=== PATIENT | female | born 1945 | race Hispanic/Latino ===

== ENCOUNTER 2018-04-08 22:52 | Observation (INO) | payer MEDICARE ==
[~2018-04-08] VITALS: Ht 165.1 cm; Wt 88.9 kg
[~2018-04-08 22:52] MED LIST: ALENDRONATE SOD70 MG PO; ARMOUR THYROID30 MG PO; CARBAMAZEPINE200 MG PO; CARBATROL200 MG PO; COZAAR100 MG PO; ISOSORBIDE MONO30 MG PO; LEVOTHYROXINE75 MCG PO; LISINOPRIL10 MG PO; METOPROLOL TART50 MG PO; OMEPRAZOLE40 MG PO; PRAVACHOL80 MG PO; PREDNISONE10 MG PO; PRILOSEC20 MG PO; Z.0.FORTAMET500 MG; Z.0.LASIX20 MG PO; Z.0.LISINOPRIL40 MG PO; Z.0.METOPROLOL SUCC5 PO; ZITHROMAX500 MG PO; [UNRECOGNIZED DRUG - OTHER] PO
--- OUTSIDE RECORDS SUMMARY | 2018-04-08 22:55 | XMS REPORT ---
Author Author [facility] Address Unknown Phone Unavailable Care Team Providers Care Ux Interaction Designer Name Role Phone GISELLE ABUTISTA Unavailable Unavailable Problems This patient has no known problems. Allergies, Adverse Reactions, Alerts This patient has no known allergies or adverse reactions. Medications This patient has no known medications. Results Test Description Test Time Test Comments Text Results Atomic Results Result Comments Stress Test - Treadmill ONLY [place] [id number] Patient Name : ANDREW FORBES MR #: [id number] : 1945 Age/Sex: 71/F Adm Physician : GISELLE BAUTISTA MD Admit Date : Location : [place] Room/Bed : REPORT: Cardiology Report DATE OF STUDY: March 24, 2017 LEXISCAN NUCLEAR STRESS TEST INDICATIONS: Chest pain. DESCRIPTION OF PROCEDURE: After informed consent, the patient was brought to the stress lab. She was given 11 millicuries of technetium 99 Myoview, and myocardial perfusion SPECT images were obtained in the horizontal long and short axis and vertical long axis views. Subsequently, the patient was given 0.5 mg Lexiscan over 10 seconds. Patient was given 31.5 millicuries of technetium 99 Myoview, and myocardial perfusion SPECT images were obtained in horizontal long and short axis and vertical long axis views. Gated images were also obtained. Patient tolerated the procedure without any complications. REPORT: Baseline EKG shows sinus rhythm at 61 beats per minute, normal axis, normal intervals, and T-wave inversions in II, III, aVF and V4 to V6. PARAMETERS 1. Resting heart rate is 56 beats per minute. 2. Maximum heart rate is 100 beats per minute. 3. Resting blood pressure is 153/61 mmHg. 4. Maximum blood pressure 171/57 mmHg. REASON FOR TERMINATION: End point attained. INTERPRETATION 1. Negative for chest pain. 2. Negative for arrhythmias. 3. Blood response consistent with Lexiscan. 4. No significant ST-T changes seen during Lexiscan infusion compared to baseline. 5. Analysis of SPECT images reveals patchy radioisotope uptake during rest and not during stress. No significant fixed or reversible perfusion defects noted. CONCLUSION 1. No evidence of significant ischemia or infarction on this study. 2. No wall motion abnormalities. 3. Overall ejection fraction is 69%. Job#: [id number] Signature Date Dictated By: GISELLE BAUTISTA MD Transcribed By: FELICIANO on 03/25/17 <Electronically signed by GISELLE BAUTISTA MD><<Signature on File>>03/29/17 1651 COPY TO:
--- OUTSIDE RECORDS SUMMARY | 2018-04-08 22:55 | XMS REPORT | Continuity of Care Document ---
Author Author [facility] Interface Address Unknown Phone Unavailable Problems Problem Status Onset Date Classification Date Reported Comments Source Dysuria 10/29/2016 Diagnosis 10/29/2016 [facility] Tachycardia 10/29/2016 Diagnosis 10/29/2016 [facility] Medications Medication Details Route Status Patient Instructions Ordering Provider Order Date Source Acetaminophen 300 MG / Codeine Phosphate 30 MG Oral Tablet acetaminophen 300 mg-codeine 30 mg tablet TOME 1 TABLETA 4 VECES AL JUANA Active [facility] Alendronic acid 70 MG Oral Tablet alendronate 70 mg tablet TOME 1 TABLETA CADA SEMANA Active [facility] Amlodipine 5 MG Oral Tablet amlodipine 5 mg tablet TOME 1 TABLETA CADA JUANA Active [facility] Ciprofloxacin 500 MG Oral Tablet [Cipro] Cipro 500 mg tablet Take 1 tablet every 12 hours by oral route for 10 days. Active [facility] Famotidine 20 MG Oral Tablet famotidine 20 mg tablet TAKE ONE TABLET BY MOUTH TWICE A DAY Active [facility] ferrous sulfate 324 MG Delayed Release Oral Tablet ferrous sulfate 324 mg (65 mg iron) tablet,delayed release TOME 1 TABLETA DOS VECES AL JUANA Active [facility] Fluoxetine 20 MG Oral Capsule fluoxetine 20 mg capsule TOME 1 CAPSULA CADA JUANA Active [facility] 24 HR Isosorbide Mononitrate 30 MG Extended Release Oral Tablet isosorbide mononitrate ER 30 mg tablet,extended release 24 hr TOME 1 TABLETA 2 VECES AL JUANA Active [facility] Levothyroxine Sodium 0.125 MG Oral Tablet levothyroxine 125 mcg tablet TOME 1 TABLETA CADA JUANA Active [facility] Levothyroxine Sodium 0.2 MG Oral Tablet levothyroxine 200 mcg tablet TOME 1 TABLETA CADA JUANA Active [facility] Lisinopril 40 MG Oral Tablet lisinopril 40 mg tablet TOME 1 TABLETA 2 VECES AL JUANA Active [facility] Hydrochlorothiazide 12.5 MG / Losartan Potassium 100 MG Oral Tablet losartan 100 mg-hydrochlorothiazide 12.5 mg tablet TOME 1 TABLETA CADA JUANA Active [facility] Hydrochlorothiazide 25 MG / Losartan Potassium 100 MG Oral Tablet losartan 100 mg-hydrochlorothiazide 25 mg tablet TOME 1 TABLETA 2 VECES AL ROMERO Active [facility] meloxicam 7.5 MG Oral Tablet meloxicam 7.5 mg tablet TOME 1 TABLETA CADA JUANA Active [facility] Metoprolol Tartrate 50 MG Oral Tablet metoprolol tartrate 50 mg tablet TOME 1 TABLETA DOS VECES AL JUANA Active [facility] montelukast 10 MG Oral Tablet montelukast 10 mg tablet TOME 1 TABLETA CADA JUANA Active [facility] NITROFURANTOIN, MACROCRYSTALS 25 MG / Nitrofurantoin, Monohydrate 75 MG Oral Capsule nitrofurantoin monohydrate/macrocrystals 100 mg capsule TOME 1 CAPSULA DOS VECES AL JUANA POR 7 WHEATLEY Active [facility] Nitroglycerin 0.4 MG Sublingual Tablet nitroglycerin 0.4 mg sublingual tablet DISUELVE 1 TABLETA EN LA BOCA Y TOME CADA 5 MINUTOS POR 3 DOSIS IRISH INDICADO Active [facility] Omeprazole 40 MG Delayed Release Oral Capsule omeprazole 40 mg capsule,delayed release TOME 1 CAPSULA CADA JUANA Active [facility] Pravastatin Sodium 80 MG Oral Tablet pravastatin 80 mg tablet TOME 1 TABLETA CADA NOCHE ALCOSTARSE Active [facility] Raloxifene Hydrochloride 60 MG Oral Tablet raloxifene 60 mg tablet TOME 1 TABLETA CADA JUANA Active [facility] Sertraline 50 MG Oral Tablet sertraline 50 mg tablet TAKE ONE TABLET BY MOUTH EVERYDAY Active [facility] Allergies, Adverse Reactions, Alerts Substance Category Reaction Severity Reaction type Status Date Reported Comments Source Immunizations Immunization Date Given Site Status Last Updated Comments Source influenza, injectable, quadrivalent 02/20/2016 completed [facility] Results Order Name Results Value Reference Range Date Interpretation Comments Source Urinalysis macro (dipstick) panel - Urine COLOR : Straw 10/29/2016 [facility] Urinalysis macro (dipstick) panel - Urine CLARITY : Turbid 10/29/2016 [facility] Urinalysis macro (dipstick) panel - Urine LEUKOCYTES : Large 10/29/2016 [facility] Urinalysis macro (dipstick) panel - Urine NITRITES : Negative 10/29/2016 [facility] Urinalysis macro (dipstick) panel - Urine UROBILINOGEN : 1 10/29/2016 [facility] Urinalysis macro (dipstick) panel - Urine PROTEIN : 30 10/29/2016 [facility] Urinalysis macro (dipstick) panel - Urine pH : 7.5 10/29/2016 [facility] Urinalysis macro (dipstick) panel - Urine BLOOD : Moderate 10/29/2016 [facility] Urinalysis macro (dipstick) panel - Urine SPECIFIC GRAVITY : 1.015 10/29/2016 [facility] Urinalysis macro (dipstick) panel - Urine KETONES : Negative 10/29/2016 [facility] Urinalysis macro (dipstick) panel - Urine BILIRUBIN : Negative 10/29/2016 [facility] Urinalysis macro (dipstick) panel - Urine GLUCOSE Negative 10/29/2016 [facility] Vital Signs Vital Sign Value Date Comments Source Diastolic (mm Hg) 68 10/29/2016 [facility] Height 65 10/29/2016 [facility] Systolic (mm Hg) 136 10/29/2016 [facility] Weight 192 10/29/2016 [facility] Encounters Location Location Details Encounter Type Encounter Number Reason For Visit Attending Provider ADM Date DC Date Status Source [place] - [facility] - [id number] Damon Means, [facility] [facility] [address] [facility] [place] [address], Ph. [id number] Damon Means 10/29/2016 [facility] Procedures Procedure Code Date Perfomer Comments Source Hysterectomy [facility] Heart Failure Composite [facility]
--- OUTSIDE RECORDS SUMMARY | 2018-04-08 22:55 | XMS REPORT | Encounter Summary ---
Author Organization Unknown Address [address] [place] [address] Phone [phone] Reason for Visit Medical Complaint Instructions 1. Dysuria painful urination (dysuria): care instructions Cipro 500 mg tablet urinalysis, dipstick culture, urine 2. Tachycardia Discussion Note: None recorded. Plan of Care Patient Instructions take antibiotics as prescribed. increase fluids. otc tylenol or ibuprofen prn for pain. will contact patient when results of culture are finalized. follow up pcp Reminders Provider Appointments None recorded. Lab Urinalysis, Dipstick 10/29/2016 [facility] Culture, Urine 10/29/2016 [facility] Referral None recorded. Procedures None recorded. Surgeries None recorded. Imaging None recorded. Medications Name Start Date acetaminophen 300 mg-codeine 30 mg tablet TOME 1 TABLETA 4 VECES AL JUANA alendronate 70 mg tablet TOME 1 TABLETA CADA SEMANA amlodipine 5 mg tablet TOME 1 TABLETA CADA JUANA Cipro 500 mg tablet Take 1 tablet every 12 hours by oral route for 10 days. famotidine 20 mg tablet TAKE ONE TABLET BY MOUTH TWICE A DAY ferrous sulfate 324 mg (65 mg iron) tablet,delayed release TOME 1 TABLETA DOS VECES AL JUANA fluoxetine 20 mg capsule TOME 1 CAPSULA CADA JUANA isosorbide mononitrate ER 30 mg tablet,extended release 24 hr TOME 1 TABLETA 2 VECES AL JUANA levothyroxine 125 mcg tablet TOME 1 TABLETA CADA JUANA levothyroxine 200 mcg tablet TOME 1 TABLETA CADA JUANA lisinopril 40 mg tablet TOME 1 TABLETA 2 VECES AL JUANA losartan 100 mg-hydrochlorothiazide 12.5 mg tablet TOME 1 TABLETA CADA JUANA losartan 100 mg-hydrochlorothiazide 25 mg tablet TOME 1 TABLETA 2 VECES AL ROMERO meloxicam 7.5 mg tablet TOME 1 TABLETA CADA JUANA metoprolol tartrate 50 mg tablet TOME 1 TABLETA DOS VECES AL JUANA montelukast 10 mg tablet TOME 1 TABLETA CADA JUANA nitrofurantoin monohydrate/macrocrystals 100 mg capsule TOME 1 CAPSULA DOS VECES AL JUANA POR 7 [place] nitroglycerin 0.4 mg sublingual tablet DISUELVE 1 TABLETA EN LA BOCA Y TOME CADA 5 MINUTOS POR 3 DOSIS IRISH INDICADO omeprazole 40 mg capsule,delayed release TOME 1 CAPSULA CADA JUANA pravastatin 80 mg tablet TOME 1 TABLETA CADA NOCHE ALCOSTARSE raloxifene 60 mg tablet TOME 1 TABLETA CADA JUANA sertraline 50 mg tablet TAKE ONE TABLET BY MOUTH EVERYDAY Medications Administered None recorded. Vitals Height Weight BMI Blood Pressure 5 ft 5 in 192 lbs 32 136/68 Lab Results Date Name Specimen Result Interpretation Description Value Range Status Address Urinalysis, Dipstick Color : Straw [facility]: [address] [place] [address] Clarity : Turbid [facility]: [address] [place] [address] Leukocytes : Large [facility]: [address] [place] [address] Nitrites : Negative [facility]: [address] [place] [address] Urobilinogen : 1 [facility]: [address] [place] [address] Protein : 30 [facility]: [address] [place] [address] Ph : 7.5 [facility]: [address] [place] [address] Blood : Moderate [facility]: [address] [place] [address] Specific [place] : 1.015 [facility]: [address] [place] [address] Ketones : Negative [facility]: [address] [place] [address] Bilirubin : Negative [facility]: [address] [place] [address] Glucose Negative [facility]: [address] [place] [address] Allergies Code Code System Name Reaction Severity Onset NKDA Problems None recorded. Procedures Date Name Performed by Hysterectomy Information not available Heart Failure Composite Information not available Vaccine List Vaccine Type influenza, injectable, quadrivalent 02/19/2016 Social History Smoking Status Never Smoker Past Encounters 10/29/2016 Dysuria; Tachycardia Damon Means, [facility]: [address] [place] [address], Ph. History of Present Illness [id number] Reported By: Patient HPI: Location: urethra. Quality: pressure, burning. Severity: same. Duration: constant. Onset/Timing: gradual. Context: history of urine cultures/antibiotic treatment, wipes anterior to posterior, voids after intercourse. Associated Symptoms: no fever/chills, no flank pain, no jaundice, no blood in the urine, no pain during urination, no vaginal discharge, no urgency, no blisters on genitals, no rash on genitals, no muscle aches, no headache, burning sensation during urination Review of Systems:ROS as noted in the HPI Review of Systems Basic Reported By: Patient Physical Exam Adult Basic, Adult Female Complete Reported By: Patient Constitutional: General Appearance: healthy-appearing, well-nourished, well-developed. Level of Distress: NAD Psychiatric: Mental Status: active and alert Lungs: Respiratory effort: no dyspnea, no tachypnea, no use of accessory muscles, no intercostal retractions. Auscultation: breath sounds normal Cardiovascular: Heart Auscultation: no murmurs, tachycardia Back: Thoracolumbar Appearance: ; pos murphys punch. states to have hx of back pain Abdomen: Inspection and Palpation: soft, non-distended, no tenderness, no guarding, no rebound tenderness, no masses, no CVA tenderness
[2018-04-08 23:52] LABS: BASOPHILS % 0.3 % (0.0-1.0); EOSINOPHILS # (AUTO) 0.2 (0.0-0.4); EOSINOPHILS % 3.1 % (0.0-6.0); HEMATOCRIT 32.8 % (34.2-44.1); HEMOGLOBIN 10.8 g/dL (12.0-16.0); MEAN CORPUSCULAR HEMOGLOBIN 28.7 pg (28-32); MEAN CORPUSCULAR HGB CONC 32.9 g/dL (31-35); MEAN CORPUSCULAR VOLUME 87.2 fL (81-99); MONOCYTES # (AUTO) 0.5 (0.2-0.8); MONOCYTES % 7.2 % (4.4-11.3); NEUTROPHILS # (AUTO) 3.8 (2.1-6.9); NEUTROPHILS % 58.1 % (38.7-80.0); PLATELET COUNT 142 x10e3/uL (140-360); RED BLOOD COUNT 3.76 x10e6/uL (3.6-5.1); RED CELL DISTRIBUTION WIDTH 13.4 % (11.7-14.4)
[2018-04-08 23:55] LABS: CLARITY,URINE CLEAR (CLEAR); COLOR,URINE YELLOW (YELLOW)
[2018-04-08 23:56] LABS: BACTERIA,URINE MODERATE /HPF; BILIRUBIN,URINE NEGATIVE (NEGATIVE); EPITHELIAL CELLS,URINE FEW /LPF; KETONES,URINE NEGATIVE (NEGATIVE); LEUKOCYTE ESTERASE ,URINE 1+ (NEGATIVE); NITRITE,URINE NEGATIVE (NEGATIVE); PROTEIN,URINE DIPSTICK NEGATIVE (NEGATIVE); RBC,URINE 0-5 /HPF (0-5); URINE UROBILINOGEN 0.2 mg/dL (0.2 - 1)
[2018-04-08] MEDS ORDERED: LISINOPRIL40 MG PO (23:57)
[2018-04-08] MEDS ORDERED: NITROSTAT0.4 MG SL (23:57)
[2018-04-09] VITALS (9 sets, daily range): BP systolic 130–192; BP diastolic 58–85
[2018-04-09] LABS: INR 0.9
[2018-04-09 00:01] LABS: PARTIAL THROMBOPLASTIN TIME 27.7 seconds (23.8-35.5)
[2018-04-09 00:10] LABS: ALBUMIN 3.7 g/dL (3.5-5.0); ALBUMIN/GLOBULIN RATIO 1.1 (0.8-2.0); ANION GAP 16.3 mmol/L (8-16); CALCIUM 9.1 mg/dL (8.4-10.2); CREATININE, SERUM 1.07 mg/dL (0.57-1.11); POTASSIUM 4.3 mmol/L (3.5-5.1)
--- NOTE | 2018-04-09 00:14 | Diagnostic Imaging Report ---
EXAMINATION: CHEST 2 VIEWS INDICATION: Chest pain for one week COMPARISON: 11/02/2014 FINDINGS: TUBES and LINES: None. LUNGS: Lungs are well inflated. Lungs are clear. There is no evidence of pneumonia or pulmonary edema. PLEURA: No pleural effusion or pneumothorax. HEART AND MEDIASTINUM: Cardiac size is mildly enlarged. There are atherosclerotic calcifications within the aorta. Midline sternotomy wires are intact. BONES AND SOFT TISSUES: There is a cortical irregularity at the anterolateral arch of the right sixth rib suspicious for subacute, healing fracture Soft tissues are unremarkable. UPPER ABDOMEN: No free air under the diaphragm. IMPRESSION: 1. No acute intrathoracic abnormality. 2. Cortical irregularity at the anterolateral arch of the right sixth rib suspicious for subacute, healing fracture. Signed by: Dr. Keon Brown M.D. on 04/09/2018 12:10 AM
[2018-04-09 00:30] LABS: CREATINE KINASE MB 1.9 ng/mL (0-5.0)
[2018-04-09] MEDS ORDERED: NITROGLYCERIN 2% OINT 1 GM PKT TOP ONE (00:30)
[2018-04-09] MEDS ORDERED: NITROGLYCERIN 0.4 MG SUBL SL PRN ×2 (01:00→12:45)
[2018-04-09] MEDS ORDERED: ONDANSETRON HCL INJ 2 MG/ML VIAL IV PRN (01:00)
[2018-04-09] MEDS ORDERED: ASPIRIN 81 MG CHEW TAB PO ONE ×2 (01:00→11:45)
[2018-04-09] MEDS ORDERED: FAMOTIDINE 20 MG TAB PO SCH (01:00)
[2018-04-09] MEDS: MORPHINE SULFATE 2 MG/ML SYR IV PRN (01:33)
[2018-04-09] MEDS: SODIUM CHLORIDE 0.9% 1000ML 1,000 ML IV SCH ×2 (01:42→11:06)
[2018-04-09] MEDS ORDERED: ACETAMINOP325 MG/10 PO (03:04)
[2018-04-09] MEDS: NITROGLYCERIN 2% OINT 1 GM PKT TOP SCH ×3 (06:05→17:31)
[2018-04-09 08:40] LABS: CREATINE KINASE MB 1.8 ng/mL (0-5.0)
[2018-04-09] MEDS: FAMOTIDINE 20 MG TAB PO SCH ×2 (08:50→21:07)
[2018-04-09] MEDS: ASPIRIN 81 MG ENTERIC COATED PO SCH (08:50)
[2018-04-09 12:01] LABS: CHOL/HDL RATIO 2.1 (3.0-3.6)
--- NOTE | 2018-04-09 12:52 | Consultation ---
DATE OF CONSULTATION: April 09, 2018 REQUESTING PHYSICIAN: Dr. Gayla Kunz. REASON FOR CONSULT: Chest pain. HISTORY OF PRESENT ILLNESS: Ms. Troncoso is a 72-year-old lady with past medical history as listed below. Apparently has been experiencing chest pain for the last week. Patient states that chest pain has been intermittent, lasting for about 5 to 10 minutes, nonradiating. No associated shortness of breath or diaphoresis. As this pain got worse, she decided to come to the hospital. Denies any abdominal pain, vomiting, diarrhea. Patient speaks mostly [place]. 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 REVIEW OF SYMPTOMS CONSTITUTIONAL: Has some fatigue and weakness. HEENT: No headache, blurring of vision, seizure, syncope. CARDIOVASCULAR: Has chest pain. No dyspnea, orthopnea, PND. RESPIRATORY: No cough, fever or expectoration. GI: No abdominal pain, vomiting, diarrhea. : No dysuria, frequency, incontinence. ALLERGIES: NO KNOWN DRUG ALLERGIES. MEDICATIONS: See list. PAST MEDICAL HISTORY 1. History of aortic valve replacement. 2. History of hypertension. 3. History of hyperlipidemia. 4. History of hypothyroidism. 5. History of GERD. SOCIAL HISTORY: Does not smoke or drink. FAMILY HISTORY: Noncontributory. PAST SURGICAL HISTORY: History of AVR in 2005. PHYSICAL EXAM GENERAL: Moderately built and nourished lady, alert, oriented, not in any obvious distress. VITAL SIGNS: Heart rate is 72, blood pressure 143/65, respiratory rate 18, temperature is 98.1. HEENT: Atraumatic. NECK: No JVD. No thyromegaly or lymphadenopathy. CARDIOVASCULAR: First and second heart sounds are heard. A 2/6 systolic murmur heard at the base. CHEST: Decreased air entry at the bases. No adventitious sounds appreciated. ABDOMEN: Soft, nontender. EXTREMITIES: No edema. LABORATORY DATA: Sodium is 139, potassium 4.3, chloride is 105, bicarb is 22, BUN is 23, creatinine 1.0, glucose is 144. Hemoglobin 10.8, hematocrit 32.8, platelets 142, white count 6.5. EKG shows sinus rhythm at 89 beats per minute, normal axis, left anterior fascicular block, first degree AV block, right bundle-branch block, secondary ST-T changes. Troponins are normal. IMPRESSION 1. Chest pain. 2. History of aortic valve replacement. 3. Hypertension. 4. History of hyperlipidemia. 5. History of hypothyroidism. 6. History of gastroesophageal reflux disease. PLAN 1. Cardiac enzymes are normal. 2. Get echocardiogram to assess LV function, valvular function. 3. Continue with aspirin, nitrate. 4. We will add statins to her regimen. 5. Further cardiac workup depending on clinical course. Discussed my impression and plan of management with the patient and she understands. As always, I appreciate and thank you very much for your referrals. Job#: [id number] HALLIE
[2018-04-09 14:00] LABS: CREATINE KINASE MB 1.8 ng/mL (0-5.0)
[2018-04-09] MEDS ORDERED: ENOXAPARIN SOD INJ 40 MG/0.4 ML SYR SC SCH (17:00)
--- NOTE | 2018-04-09 17:05 | History and Physical ---
CHIEF COMPLAINT: Chest pain. HPI: This is a 72-year-old female with past medical history of CAD with chest pain in the past, hypothyroidism, hyperlipidemia, and hypertension, who comes into the ED with complaints of substernal chest pain on the left side that began for the last several days. Patient reports that the chest pain is substernal, pressure like, radiates to her left shoulder and arm. She denies any associated nausea, vomiting, or diaphoresis. She is followed up with Dr. Santacruz, her chief steward/stewardess. Cardiology was consulted while here. During my evaluation and examination, she reports having no chest pain at this time. She also complains of left lower extremity pain that has been ongoing for the last several days as well. Her left lower leg is much larger than the right, but she reports that this is normal and this has been ongoing for several years now, and there is no change. Patient currently reports that occasionally she will have difficulty walking on the left foot, but otherwise denies any other issues. This left lower leg has been ongoing for several years now, and there is not a new finding. Lower extremity Doppler shows no evidence of any DVT. Patient seen and evaluated at bedside on the medical floor, currently doing well with no other complaints. REVIEW OF SYSTEMS: Pertinent positives: Left lower leg pain, chest pain. Pertinent negatives: Denies any palpitation, nausea, vomiting, diarrhea, dysuria, hematuria, frequency, urgency, lightheadedness, dizziness, abdominal pain, headache, shortness of breath, cough, congestion, fever, or any other complaints. Rest of the 14-point review of systems have been reviewed with the patient and are negative. ALLERGIES: NO KNOWN DRUG ALLERGIES. HOME MEDICATIONS 1. Carbamazepine 20 mg b.i.d. 2. Isosorbide mononitrate 30 mg daily. 3. Levothyroxine 75 mcg daily. 4. Lisinopril 40 mg p.o. b.i.d.. PAST MEDICAL HISTORY: Hypertension, history of CAD in the past, hyperlipidemia, hypothyroidism. PAST SURGICAL HISTORY: Reports none. FAMILY HISTORY: Hypertension and diabetes. SOCIAL HISTORY: No drugs, no alcohol. Does not smoke. Good social support. LAB FINDINGS: Show a white count of 6.5, hemoglobin 10.9, hematocrit is 33, platelets of 142. Coagulation; PT 13, INR is 0.9, PTT 27.7. D-dimer was slightly elevated at 0.46. Urinalysis found to be negative. MICROBIOLOGY: None. IMAGING STUDIES: Chest x-ray shows no acute intrathoracic abnormality. There is a coracoid irregularity at the anterolateral arch of the right 6th rib consistent with subacute healing fracture. No further workup needed. PHYSICAL EXAMINATION VITAL SIGNS: Temperature is 98.1, pulse 73, respiratory rate is 20, blood pressure is 143/65, pulse ox is 94% on room air. GENERAL: Not in acute distress, alert and oriented x3, cooperative on examination. HEENT: Head normocephalic and atraumatic. Eyes: Pupils equal, round, and reactive to light bilaterally. Extraocular movements intact bilaterally. Throat: No evidence of any erythema or exudates in the posterior pharynx, has poor dentition. NECK: Supple. Good range of motion. PULMONARY: Clear to auscultation bilaterally. No wheezing, no rales, no rhonchi, and no crackles appreciated. CARDIOVASCULAR: Positive S1 and S2. No murmurs, rubs, or gallops appreciated. ABDOMEN: Soft, nondistended, nontender to palpation. Bowel sounds present. MUSCULOSKELETAL: Strength is 5/5 bilaterally. No evidence of any musculoskeletal deficits on examination. No weakness appreciated. NEUROLOGICAL: Cranial nerves II through XII are grossly intact. No evidence of any neurologic deficit on examination. SKIN: Intact. Warm to touch. Good cap refill. PSYCHIATRIC: Normal affect and mood. EXTREMITIES: No edema. Good range of motion throughout. IMPRESSION 1. Chest pain, likely atypical in nature due to musculoskeletal pain, likely due to underlying subacute rib fracture. 2. Left lower extremity pain with negative venous Doppler. 3. Subacute right rib fracture, in the healing phase. 4. Hypertension. 5. Hypothyroidism. PLAN: At this time, in relation to her chest pain, cardiology was consulted and I discussed this case with him. At this time, he just wants a 2D echo but she is otherwise being cleared by cardiology for discharge. Her cardiac enzymes were negative. Continue with statin, aspirin, and cardioprotective meds. In relation to her left leg pain, her venous Doppler was found to be negative, but it is going to be reviewed by the chief steward/stewardess. We are going to get PT to get patient also to ambulate. In relation to her questionable subacute right rib fracture, which is healing, this is the likely etiology of her chest pain. I will start her on some vitamin D. There is no workup needed for that and no further intervention. In relation to her hypertension, continue same home medications with no changes. Put her on Lovenox. DVT prophylaxis. Continue the same plan of care and home medications otherwise. Patient will likely be discharged home tomorrow and she is currently under observation. Job#: [id number] LPA
[2018-04-09] MEDS: LISINOPRIL 20 MG TAB PO SCH (17:31)
[2018-04-09] MEDS ORDERED: FUROSEMIDE INJ 10 MG/ML 4 ML VIAL IV ONE (20:15)
[2018-04-09] MEDS: ALBUTEROL/IPRATROPIUM 3 ML NEB NEB PRN (20:55)
[2018-04-09] MEDS ORDERED: ATORVASTATIN 20 MG TAB PO SCH (21:00)
[2018-04-09] MEDS: CARBAMAZEPINE 200 MG TAB PO SCH (21:07)
[2018-04-10] MEDS: NITROGLYCERIN 2% OINT 1 GM PKT TOP SCH ×2 (00:25→07:13)
[2018-04-10 00:42] VITALS: BP 154/74
[2018-04-10] MEDS: ALBUTEROL/IPRATROPIUM 3 ML NEB NEB PRN (02:20)
[2018-04-10] MEDS: MORPHINE SULFATE 2 MG/ML SYR IV PRN (03:00)
[2018-04-10] MEDS ORDERED: SODIUM CHLORIDE 0.9% 1000ML 1,000 ML ONE (03:17)
[2018-04-10 05:32] VITALS: BP 106/56
[2018-04-10 05:33] LABS: BASOPHILS % 0.3 % (0.0-1.0); EOSINOPHILS # (AUTO) 0.1 (0.0-0.4); HEMATOCRIT 33.2 % (34.2-44.1); HEMOGLOBIN 11.1 g/dL (12.0-16.0); LYMPHOCYTES % 13.2 % (18.0-39.1); MEAN CORPUSCULAR HEMOGLOBIN 28.8 pg (28-32); MEAN CORPUSCULAR HGB CONC 33.4 g/dL (31-35); MEAN CORPUSCULAR VOLUME 86.2 fL (81-99); MONOCYTES # (AUTO) 0.5 (0.2-0.8); NEUTROPHILS % 78.1 % (38.7-80.0); PLATELET COUNT 135 x10e3/uL (140-360); RED BLOOD COUNT 3.85 x10e6/uL (3.6-5.1); RED CELL DISTRIBUTION WIDTH 13.3 % (11.7-14.4)
[2018-04-10 05:51] LABS: ANION GAP 18.1 mmol/L (8-16); CALCIUM 9.5 mg/dL (8.4-10.2); CHOL/HDL RATIO 2.3 (3.0-3.6); CREATININE, SERUM 1.51 mg/dL (0.57-1.11); POTASSIUM 4.1 mmol/L (3.5-5.1)
[2018-04-10] MEDS ORDERED: LEVOTHYROXINE SODIUM 125 MCG TAB PO SCH (06:00)
[2018-04-10 08:16] VITALS: BP 121/57
[2018-04-10] MEDS: FAMOTIDINE 20 MG TAB PO SCH (08:57)
[2018-04-10] MEDS: CARBAMAZEPINE 200 MG TAB PO SCH (08:57)
[2018-04-10] MEDS: ASPIRIN 81 MG ENTERIC COATED PO SCH (08:57)
[2018-04-10] MEDS ORDERED: CHOLECALCIFEROL 1,000 UNIT TAB PO SCH (09:00)
[2018-04-10] MEDS ORDERED: ISOSORBIDE MONONITRATE 30 MG TAB CR PO SCH (09:00)
--- NOTE | 2018-04-10 10:24 | Diagnostic Imaging Report ---
EXAMINATION: CHEST 2 VIEWS INDICATION: ^WHEEZING ^[id number] ^[id number] COMPARISON: Chest radiograph 04/08/2018 FINDINGS: PA and lateral views TUBES and LINES: None. LUNGS: Lungs are well inflated. Lungs are clear. There is no evidence of pneumonia or pulmonary edema. PLEURA: No pleural effusion or pneumothorax. HEART AND MEDIASTINUM: Stable mild enlargement of the cardiac silhouette. Atherosclerotic calcifications of the aortic arch. BONES AND SOFT TISSUES: Status post median sternotomy with unchanged broken inferior wire. Unchanged healing fracture of the right anterolateral sixth rib. Soft tissues are unremarkable. UPPER ABDOMEN: No free air under the diaphragm. IMPRESSION: No acute thoracic abnormality. Signed by: Dr. Deonna Jolly M.D. on 04/10/2018 10:21 AM
[2018-04-10 10:58] VITALS: BP 121/57
[2018-04-10 11:19] VITALS: BP 152/70
[2018-04-10 11:30] VITALS: BP 141/68
[2018-04-10] MEDS: LISINOPRIL 20 MG TAB PO SCH (12:40)
--- NOTE | 2018-04-10 23:29 | Discharge Summary ---
FINAL DISCHARGE DIAGNOSES 1. Atypical chest pain. 2. Possible underlying subacute rib fracture healing. 3. Left lower extremity pain with negative venous Doppler. 4. Hypertension. 5. Hypothyroidism. CONSULTANTS: Cardiology. VITAL SIGNS: Temperature is 97.7, pulse 72, respiratory rate is 18, blood pressure 121/57, pulse ox 95% on nasal cannula. LAB FINDINGS: Show white count is 7.6, hemoglobin 11, hematocrit 33, platelets of 135,000. Coagulations were normal. Chemistry sodium was 139, potassium 4.1, chloride 101, bicarb 24, anion gap of 18, BUN is 27, creatinine 1.5, glucose 9.5. Troponins were negative x4. LDL was 72. Urinalysis was found to be negative. IMAGING STUDIES: Chest x-ray was possible subacute right 6th rib fracture, but healing according to the report. Repeat chest x-ray shows no acute intrathoracic abnormalities. A 2-D echo showed an EF of 55%. Lower extremity Doppler of the left lower leg shows no evidence of DVT. HOSPITAL COURSE: This is a 72-year-old female, who came into the ED with complaints of substernal chest pain in which cardiology was consulted. Patient was admitted under observation for further evaluation. Cardiac enzymes were found to be negative. EKG showed no acute findings. A 2-D echo was found to have an EF of 65%. Patient was cleared by cardiology for discharge home. He needs to follow up in 1 week to get a cardiac stress test. On discharge, patient denies any more chest pain. On the day of discharge, vital signs stable. Labs remained stable. Patient seen and evaluated, examined thoroughly on the day of discharge. No other complaints. Patient verbalized understanding and agrees with plan of care. To follow up accordingly as an outpatient with primary care physician in 1 week and rotary soil stabilizer in 1 week for cardiac stress test. MEDICATIONS: See med reconciliation form with no changes. DISPOSITION: Home. CONDITION: Stable. DIET: Heart healthy. In the event of worsening symptom, patient advised to come back to the ED for further evaluation. Discharge summary took greater than 35 minutes. ALFREDO FAIRBANKS MD Job#: [id number]
== END 2018-04-10 13:18 | disposition home or self-care (01) ==
LOC: ER 22:52 → ERHOLD 04-09 00:55 → MED/SURG 04-09 02:33
PROVIDERS: ADMIT Internal Medicine; ATTEND Internal Medicine
DX: R07.89 Other chest pain (principal); I45.10 Unspecified right bundle-branch block; I10 Essential (primary) hypertension; E78.5 Hyperlipidemia, unspecified; Z95.2 Presence of prosthetic heart valve; I25.10 Atherosclerotic heart disease of native coronary artery without angina pectoris; E03.9 Hypothyroidism, unspecified; S22.31XD Fracture of one rib, right side, subsequent encounter for fracture with routine healing; K21.9 Gastro-esophageal reflux disease without esophagitis; M79.605 Pain in left leg
CPT/HCPCS: 36415 ×3; 71046 ×2; 80048; 80053; 80061 ×2; 81001; 82550 ×3; 82553 ×3; 84484 ×3; 85025 ×2; 85379; 85610; 85730; 93005 ×2; 93306; 93971; 94640 ×2; 99284; G0378 ×2; J1650; J1940; J2270 ×2; J2405; J7030 ×2

== ENCOUNTER 2018-09-25 21:25 | Emergency (ER) | payer MEDICARE ==
[~2018-09-25] VITALS: Ht 165.1 cm; Wt 88.9 kg
[~2018-09-25 21:25] MED LIST changes: +ACETAMINOP325 MG/10 PO; +LISINOPRIL40 MG PO; +NITROSTAT0.4 MG SL
[2018-09-25] MEDS ORDERED: ASPIRIN 81 MG CHEW TAB PO ONE (21:45)
[2018-09-25 22:01] LABS: BASOPHILS % 0.1 % (0.0-1.0); EOSINOPHILS # (AUTO) 0.1 (0.0-0.4); LYMPHOCYTES # (AUTO) 1.9 (1.0-3.2); LYMPHOCYTES % 24.3 % (18.0-39.1); MEAN CORPUSCULAR HEMOGLOBIN 29.1 pg (28-32); MEAN CORPUSCULAR HGB CONC 33.3 g/dL (31-35); MEAN CORPUSCULAR VOLUME 87.4 fL (81-99); MONOCYTES # (AUTO) 0.7 (0.2-0.8); MONOCYTES % 8.3 % (4.4-11.3); NEUTROPHILS # (AUTO) 5.2 (2.1-6.9); PLATELET COUNT 130 x10e3/uL (140-360); RED BLOOD COUNT 3.09 x10e6/uL (3.6-5.1)
--- NOTE | 2018-09-25 22:05 | Diagnostic Imaging Report ---
EXAMINATION: PA and lateral views of the chest. COMPARISON: None CLINICAL HISTORY: Chest pain DISCUSSION: Lines/tubes: Sternotomy wires. Lungs: The lungs are well inflated and clear. No pneumonia or pulmonary edema. Pleura: No pleural effusion or pneumothorax. Heart and mediastinum: Mild cardiomegaly. Bones and soft tissues: No acute bony abnormalities. IMPRESSION: No acute cardiopulmonary abnormalities. Signed by: Dr. Delgado Biggs M.D. on 09/25/2018 10:02 PM
[2018-09-25 22:09] LABS: CLARITY,URINE CLEAR (CLEAR); COLOR,URINE YELLOW (YELLOW); KETONES,URINE NEGATIVE (NEGATIVE); LEUKOCYTE ESTERASE ,URINE 1+ (NEGATIVE); NITRITE,URINE NEGATIVE (NEGATIVE); PROTEIN,URINE DIPSTICK NEGATIVE (NEGATIVE); URINE UROBILINOGEN 0.2 mg/dL (0.2 - 1)
[2018-09-25 22:10] LABS: BILIRUBIN,URINE NEGATIVE (NEGATIVE)
[2018-09-25 22:14] LABS: BACTERIA,URINE FEW /HPF; EPITHELIAL CELLS,URINE FEW /LPF; RBC,URINE 0-5 /HPF (0-5)
[2018-09-25 22:16] LABS: ALBUMIN 3.2 g/dL (3.5-5.0); ALBUMIN/GLOBULIN RATIO 0.8 (0.8-2.0); ANION GAP 13.4 mmol/L (8-16); CALCIUM 9.1 mg/dL (8.4-10.2); CREATININE, SERUM 1.72 mg/dL (0.57-1.11); POTASSIUM 4.4 mmol/L (3.5-5.1)
[2018-09-25 23:30] VITALS: BP 162/53
[2018-09-26 00:13] LABS: CREATINE KINASE MB 0.8 ng/mL (0-5.0)
== END 2018-09-25 23:36 | disposition home or self-care (01) ==
LOC: ER 21:25
DX: R07.89 Other chest pain (principal); R05 Cough; J20.9 Acute bronchitis, unspecified; N30.90 Cystitis, unspecified without hematuria; I10 Essential (primary) hypertension; E03.9 Hypothyroidism, unspecified; K21.9 Gastro-esophageal reflux disease without esophagitis; F32.9 Major depressive disorder, single episode, unspecified; E78.5 Hyperlipidemia, unspecified
CPT/HCPCS: 36415; 71046; 80053; 81001; 82550; 82553; 84484; 85025; 93005; 99284

== ENCOUNTER → 2019-02-10 | Outpatient (CLI) | payer MEDICARE ==
[~2019-02-10] MED LIST changes: +ASPIR 8181 MG PO; +Atorvastatin PO; +FAMOTIDINE20 MG PO; +LEVOTHYROXINE200 MCG PO; +LISINOPRIL-HCT1 EACH PO; +LOPRESSOR25 MG PO; +MELOXICAM7.5 MG PO; +NITROGLYCERIN 0.4 MG SUBL ONE; +PRAVASTATIN SOD80 MG PO; +REGADENOSON 0.4 MG/5 ML SYR IV ONE
--- NOTE | 2019-02-10 20:23 | Myoview Stress Test ---
DATE OF STUDY: 02/10/2019 10:29:00 Stress Test - Treadmill ONLY PROCEDURE TITLE: Rest stress single isotope SPECT imaging with pharmacologic stress and gated SPECT imaging. INDICATION: Chest pain. PROCEDURE IN DETAIL: Pharmacologic stress testing was performed with regadenoson per protocol. The heart rate was 66 beats per minute at rest and increased to 91 beats per minute during the regadenoson infusion. The resting blood pressure was 175/71 mmHg and increased to 186/57 mmHg, which is a normal response. The patient developed chest pain during stress, which persisted through recovery. The resting electrocardiogram demonstrated normal sinus rhythm with right bundle-branch block and ST and T-wave abnormalities. There were no ST-segment changes suggestive of myocardial ischemia. Myocardial perfusion imaging was performed at rest following the injection of 11 mCi of tetrofosmin. At peak pharmacologic effect, the patient was injected with 33 mCi of tetrofosmin. Gated post-stress tomographic imaging was performed. FINDINGS: The overall quality of study is fair. Left ventricular cavity is noted to be normal size on the rest and stress studies. SPECT images demonstrate a small mild perfusion defect in the anterior wall that is improved with stress. Gated SPECT imaging reveals normal myocardial thickening and wall motion. IMPRESSION: Myocardial perfusion imaging is abnormal. There is a small nontransmural scar in the anterior wall, cannot rule out attenuation artifact. Overall, left ventricular systolic function is normal without regional wall motion abnormalities. Connie Elliott MD ABS/MODL /[id number]
== END ==
LOC: NM 10:17
PROVIDERS: ATTEND Internal Medicine Interventional Cardiology
DX: I20.8 Other forms of angina pectoris (principal)
CPT/HCPCS: 78452; 93017; A9502; J2785

== ENCOUNTER 2019-03-04 21:20 | Observation (INO) | payer MEDICARE ==
[~2019-03-04] VITALS: Ht 165.1 cm; Wt 89.3 kg
[~2019-03-04 21:20] MED LIST changes: -ASPIR 8181 MG PO; -Atorvastatin PO; -FAMOTIDINE20 MG PO; -LEVOTHYROXINE200 MCG PO; -LISINOPRIL-HCT1 EACH PO; -LOPRESSOR25 MG PO; -MELOXICAM7.5 MG PO; -NITROGLYCERIN 0.4 MG SUBL ONE; -PRAVASTATIN SOD80 MG PO; -REGADENOSON 0.4 MG/5 ML SYR IV ONE
--- OUTSIDE RECORDS SUMMARY | 2019-03-04 21:23 | XMS REPORT | Continuity of Care Document ---
Author Author [employer] Address Unknown Phone Unavailable Care Team Providers Care Sticker Hand Name Role Phone [employer] Information Exchange Unavailable Unavailable Problems Problem Status Onset Date Classification [...] EVERYDAY Active [facility] Allergies, Adverse Reactions, Alerts No Known Medication Allergies Immunizations Immunization Date Given Site Status Last [...] panel - Urine GLUCOSE Negative 10/29/2016 [facility] Pathology Reports No Data Provided for This Section Diagnostic Reports No Data Provided for This Section Consultation Notes No Data Provided for This Section Discharge Summaries No Data Provided for This Section History and Physicals No Data Provided for This Section Vital Signs Vital Sign Value Date Comments Source Diastolic (mm Hg) 68 10/29/2016 [facility] Height 65 10/29/2016 [facility] Systolic (mm Hg) 136 10/29/2016 [facility] Weight 192 10/29/2016 [facility] Encounters Location Location Details Encounter Type Encounter Number Reason For Visit Attending Provider ADM Date DC Date Status Source [place] - [facility] - [id number] Damon Means, [facility] [address] [place] [address], Ph. [id number] Damon Means 10/29/2016 [facility] Procedures Procedure Code Date Perfomer Comments Source Hysterectomy [facility] Heart Failure Composite [facility] Assessment and Plan No Data Provided for This Section Plan of Care No Data Provided for This Section Social History Social History Date Source Smoking Status Never Smoker 10/29/2016 [facility] Family History No Data Provided for This Section Advance Directives No Data Provided for This Section Functional Status No Data Provided for This Section
[2019-03-04] MEDS ORDERED: SODIUM CHLORIDE 0.9% 1000ML 1,000 ML IV STA (21:28)
[2019-03-04] MEDS ORDERED: ASPIRIN 81 MG CHEW TAB PO ONE (21:30)
[2019-03-04 22:07] LABS: BASOPHILS % 0.2 % (0.0-1.0); EOSINOPHILS # (AUTO) 0.1 (0.0-0.4); EOSINOPHILS % 0.9 % (0.0-6.0); HEMATOCRIT 28.5 % (34.2-44.1); HEMOGLOBIN 9.7 g/dL (12.0-16.0); LYMPHOCYTES # (AUTO) 1.9 (1.0-3.2); LYMPHOCYTES % 21.6 % (18.0-39.1); MEAN CORPUSCULAR HEMOGLOBIN 29.5 pg (28-32); MEAN CORPUSCULAR VOLUME 86.6 fL (81-99); MONOCYTES # (AUTO) 0.6 (0.2-0.8); MONOCYTES % 6.9 % (4.4-11.3); NEUTROPHILS % 70.1 % (38.7-80.0); PLATELET COUNT 142 x10e3/uL (140-360); RED BLOOD COUNT 3.29 x10e6/uL (3.6-5.1); RED CELL DISTRIBUTION WIDTH 12.6 % (11.7-14.4)
[2019-03-04 22:25] LABS: ALBUMIN 3.4 g/dL (3.5-5.0); ALBUMIN/GLOBULIN RATIO 0.9 (0.8-2.0); ANION GAP 13.7 mmol/L (8-16); CALCIUM 8.8 mg/dL (8.4-10.2); CREATININE, SERUM 1.54 mg/dL (0.57-1.11); POTASSIUM 4.7 mmol/L (3.5-5.1)
[2019-03-04 22:31] LABS: CREATINE KINASE MB 1.3 ng/mL (0-5.0)
[2019-03-05] VITALS (8 sets, daily range): BP systolic 116–177; BP diastolic 53–73
--- NOTE | 2019-03-05 | NUR ---
patient states increased chest pain, dr moss in room.
--- NOTE | 2019-03-05 00:06 | Diagnostic Imaging Report ---
EXAMINATION: CHEST SINGLE (NOT PORTABLE) INDICATION: Chest pain COMPARISON: Chest radiograph 09/25/2018 FINDINGS: AP view TUBES and LINES: None. LUNGS: Lungs are well inflated. Central pulmonary vascular prominence. No consolidations. PLEURA: No pleural effusion or pneumothorax. HEART AND MEDIASTINUM: Cardiac size is mildly enlarged. Aortic valve replacement. BONES AND SOFT TISSUES: No acute osseous lesion. Soft tissues are unremarkable. Sternotomy wires, the inferior wires fractured. Degenerative changes in the spine. UPPER ABDOMEN: No free air under the diaphragm. IMPRESSION: Mild cardiomegaly and central pulmonary vascular congestion. Signed by: Juan Núñez DO on 03/05/2019 12:03 AM
[2019-03-05] MEDS: MORPHINE SULFATE INJ 4 MG/ML INJ 1ML IV PRN ×2 (00:20→09:54)
[2019-03-05] MEDS ORDERED: ENOXAPARIN SODIUM INJ 100 MG/ML SYR SC STA (00:36)
[2019-03-05] MEDS ORDERED: HYDRALAZINE HCL 20 MG/ML VIAL IV ONE (00:45)
--- NOTE | 2019-03-05 01:00 | NUR ---
patient had bigeminy beats in telemetry, dr moss informed.
[2019-03-05] MEDS ORDERED: NITROGLYCERIN 0.4 MG PATCH TOP STA (01:02)
[2019-03-05] MEDS ORDERED: MORPHINE SULFATE INJ 4 MG/ML INJ 1ML IV PRN (01:15)
--- OUTSIDE RECORDS SUMMARY | 2019-03-05 01:25 | XMS REPORT | Continuity of Care Document ---
Author Author [employer] Address Unknown Phone Unavailable Care Team Providers Care Senior Business Broker Name Role Phone [employer] Information Exchange Unavailable Unavailable Problems Problem Status [...] Date Status Source [place] - [facility] - [id number] Damon Means, [facility] [address] [place] [address], Ph. [id number] Damon Means 10/29/2016 [facility] Procedures Procedure Code [...]
[2019-03-05 01:46] LABS: CREATINE KINASE MB < 1.00 ng/mL (0-4.3)
[2019-03-05] MEDS ORDERED: PRAVASTATIN SOD80 MG PO (01:56)
[2019-03-05] MEDS ORDERED: LEVOTHYROXINE200 MCG PO (01:56)
[2019-03-05] MEDS ORDERED: LISINOPRIL-HCT1 EACH PO (01:56)
[2019-03-05 01:57] LABS: CREATINE KINASE 48 IU/L (29-168)
[2019-03-05] MEDS ORDERED: HYDRALAZINE HCL 20 MG/ML VIAL IV PRN (02:00)
[2019-03-05] MEDS: ONDANSETRON HCL INJ 2MG/ML 2ML 2 MG/ML VIAL IV PRN ×2 (02:40→09:55)
--- NOTE | 2019-03-05 07:00 | NUR ---
bedside rounds complete no distress noted, l ac 20g no ss of infiltration noted, denies chest pain at this time, updated on poc voiced understanding, denies pain at this time, call light in reach will continue to monitor
[2019-03-05 09:32] LABS: CREATINE KINASE MB 1.7 ng/mL (0-5.0)
--- NOTE | 2019-03-05 10:03 | NUR ---
H&P cc: cp HPI: 73yoF, PCP , with hx CAD now with chest discomfort on left, and left posteror neck pain. Pain really originates in posterior left neck,then radiates to left chest and left arm. 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 hba1c/lipids Lovenox/pepcid Jonathan Vargas MD, PhD.
[2019-03-05] MEDS: CARBAMAZEPINE 200 MG TAB PO SCH ×2 (11:34→22:36)
[2019-03-05] MEDS: ASPIRIN 325 MG TAB PO SCH (11:34)
[2019-03-05] MEDS ORDERED: ISOSORBIDE MONONITRATE 30 MG TAB CR PO ONE ×2 (12:30→13:00)
--- NOTE | 2019-03-05 13:38 | Consultation ---
DATE OF CONSULTATION: Cardiology Consultation HISTORY OF PRESENT ILLNESS: This 73-year-old woman with a history of 2 aortic valve replacements, most recent with bioprosthetic valve; hypertension, hyperlipidemia, obesity, seizure disorder, who presented to the emergency department with chest pain. She had recently seen my colleague, Dr. Hagan in clinic and a stress test was ordered. Her symptoms of chest pain actually start at the base of her head and neck reported as pressure tightness and sharp moderate pain, and that progresses and radiates down into the chest, it is worse with exertion better with rest, associated with shortness of breath. Her stress test showed a small nontransmural scar of the anterior wall versus artifact. She still is having intermittent discomfort. REVIEW OF SYSTEMS: A 12-point review of system was conducted, and is negative except stated above in the HPI. PAST MEDICAL HISTORY: As stated above in the HPI. PAST SURGICAL HISTORY: To aortic valve replacement. PAST FAMILY HISTORY: Noncontributory. SOCIAL HISTORY: No illicit drug, alcohol, or tobacco use. ALLERGIES: NO KNOWN DRUG ALLERGIES. MEDICATIONS: See med reconciliation form. PHYSICAL EXAMINATION: VITAL SIGNS: Temperature is 97.6, heart rate 76, respirations are 19, blood pressure is 146/63, and oxygen saturation 98% on room air. GENERAL: Well appearing, well built, in no apparent distress. Alert and oriented x3. HEAD: Normocephalic, atraumatic. EYES: Extraocular muscles are intact. Conjunctivae are clear. NECK: No JVD. No bruits. CARDIOVASCULAR: Regular rate and rhythm. LUNGS: Clear to auscultation bilaterally. No wheezing or rales. ABDOMEN: Soft, nontender, nondistended. EXTREMITIES: No clubbing, cyanosis, or edema. VASCULAR: 2+ pulses. SKIN: Warm, dry, and intact. NEUROLOGIC: No focal deficits noted. Cranial nerves are grossly intact. PSYCHIATRIC: No mood and affect. LABORATORY DATA: Reviewed. Hemoglobin 9.7. Troponin I is negative x3. LDL is 54. Creatinine is 1.54. Sodium is 128. IMPRESSION: 1. Precordial pain. 2. Abnormal stress test. 3. Hypertension. 4. Hyperlipidemia. 5. Chronic kidney disease. 6. Hyponatremia. 7. History of aortic valve replacement. RECOMMENDATIONS: The patient is ruled out for acute myocardial infarction with 3 sets of negative cardiac enzymes. Continue current cardiovascular medications. We will check a 2D echocardiogram to assess left ventricular function and valvular status. The patient likely will need cardiac catheterization giving recurrent episodes of chest pain and abnormal stress test. DO ELANA Deleon/JEFE /[id number]
[2019-03-05] MEDS: FAMOTIDINE 20 MG TAB PO SCH (16:54)
[2019-03-05] MEDS: ENOXAPARIN SOD INJ 40 MG/0.4 ML SYR SC SCH (16:54)
[2019-03-05] MEDS: ISOSORBIDE MONONITRATE 30 MG TAB CR PO SCH (16:54)
[2019-03-05] MEDS ORDERED: ATORVASTATIN 40 MG TAB PO SCH (21:00)
[2019-03-05] MEDS: METOPROLOL TARTRATE 25 MG TAB PO SCH (22:20)
[2019-03-06] VITALS (7 sets, daily range): BP systolic 112–149; BP diastolic 52–100
[2019-03-06] MEDS ORDERED: LEVOTHYROXINE SODIUM 100 MCG TAB PO SCH (06:00)
--- NOTE | 2019-03-06 06:54 | NUR ---
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 hba1c/lipids Lovenox/pepcid Hba1c 5.8; Abnormal stress test, so plans for C; f/u echo. LDL 54. cleared by cardiology; CAD but no intervention; d/c home d/c home f/u pcp 1 week and 2 weeks stable d/c>35mins Jonathan Vargas MD, PhD.
[2019-03-06] MEDS: ASPIRIN 325 MG TAB PO SCH (08:57)
[2019-03-06] MEDS: FAMOTIDINE 20 MG TAB PO SCH ×2 (08:57→17:05)
[2019-03-06] MEDS: METOPROLOL TARTRATE 25 MG TAB PO SCH (08:58)
[2019-03-06] MEDS: CARBAMAZEPINE 200 MG TAB PO SCH (08:58)
[2019-03-06] MEDS: ISOSORBIDE MONONITRATE 30 MG TAB CR PO SCH ×2 (08:58→17:06)
[2019-03-06] MEDS ORDERED: LISINOPRIL 2.5 MG TAB PO SCH (09:00)
[2019-03-06] MEDS ORDERED: MIDAZOLAM HCL 2 MG/2 ML VIAL ONE (11:33)
[2019-03-06] MEDS ORDERED: IOPAMIDOL 370 MG/ML 200 ML INFUS..BTL INJ ONE (11:34)
[2019-03-06] MEDS ORDERED: SODIUM CHLORIDE 0.9% 1000ML 1,000 ML ONE (11:34)
[2019-03-06] MEDS ORDERED: LIDOCAINE HCL 2% LOCAL 20 ML VIAL ONE (11:34)
[2019-03-06] MEDS ORDERED: HEPARIN SOD/SOD CHLORIDE 2,000 ML ONE (11:34)
[2019-03-06] MEDS ORDERED: FENTANYL CITRATE/PF 100MCG/2 ML INJ ONE (11:34)
--- NOTE | 2019-03-06 11:34 | NUR ---
RECEIVED A CALL FROM MACHINE LOADER ASKING IF PT WAS READY FOR PROCEDURE NO ORDERS GIVEN. PT HAS NOT BEEN NPO, NOTIFIED MACHINE LOADER NURSE TRANSPORTER IS HERE TO GET PT, CONSENT WILL BE SIGNED WITH MACHINE LOADER TEAM
[2019-03-06] MEDS ORDERED: BIVALRIUDIN 250 MG/VIAL VIAL IV ONE (12:29)
[2019-03-06] MEDS ORDERED: SODIUM CHLORIDE 0.9% 50ML 0 ML ONE (12:30)
[2019-03-06] MEDS ORDERED: HYDRALAZINE HCL 20 MG/ML VIAL ONE (12:34)
--- NOTE | 2019-03-06 12:38 | NUR ---
HEART CATH COMPLETE RECEIVED REPORT FROM CORI NO FIX PT IS TO REMAIN ON BED REST UNTIL 1400 AND DC HOME AFTER THAT
--- NOTE | 2019-03-06 12:40 | NUR ---
Report provided to AC RN, review of procedural findings and medications given. Patient drowsy, easily aroused. maintains airway and room air saturations of 98-99%. No gross issues of pressure, pain, pallor or dysrhythmia. IV site patent with NS 0.9% at 100ml/hr by dial-flow. patient hemodynamically stable with hemostasis right groin dressing CDI w/o s/s of bleeding. patient transferred to [facility] max assist w/o incident. transported to [facility] holding - [facility] [place] procedure: DX LHC and coronary angiography Sheath puller: Barrett HALL Mynx 6/7 fr Meds Given Intra-Procedure Sedatives Versed - 2 mg Fentanyl - 50 mcg Fluids Input - 100 ml Output - dtv Contrast Isovue 370 - 65ml Other Meds NA
--- NOTE | 2019-03-06 13:09 | NUR ---
PT BACK TO FLOOR AA0X2, VERY DROWSY FROM PROCEDURE PT FAMILY IS AT BEDSIDE V.S STABLE RIGHT GROIN DRY AND INTACT PEDAL PULSES PRESENT BILATERALLY BEDREST UNTIL 1400 WILL CONTINUE TO MONITOR CLOSELY SIDE RAILSX2, BED WHEELS LOCKED, CALL LIGHT IS WITHIN EASY REACH, INSTRUCTED TO CALL FOR ASSISTANCE IF NEEDED
[2019-03-06] MEDS ORDERED: SODIUM CHLORIDE 0.9% 1000ML 1,000 ML IV ONE (13:15)
[2019-03-06] MEDS: MORPHINE SULFATE INJ 4 MG/ML INJ 1ML IV PRN (13:28)
--- NOTE | 2019-03-06 13:28 | NUR ---
RIGHT DRESSING REMAINS DRY AND INTACT PEDAL PULSES PRESENT PT C/O LEFT SHOULDER PAIN 10/10 , PRN MORPHINE GIVEN , IV FLUIDS HUNG PER MD SPENCER TIMES ONE BAG TO THE LEFT AC 20 FAMILY DAUGHTER REMAINS AT BEDSIDE
--- NOTE | 2019-03-06 14:30 | Operative Report ---
DATE OF PROCEDURE: 03/06/2019 SURGEON: Buddy Brooks MD INDICATIONS: Coronary artery disease and angina. PROCEDURES PERFORMED: 1. Left heart catheterization, selective coronary angiography. 2. Deployment of right groin Mynx closure device. COMPLICATIONS: None. RECOMMENDATIONS: Dual medical therapy. DESCRIPTION OF PROCEDURE: Access obtained in the right femoral artery. A 6-Estonian sheath was placed. Coronary angiography demonstrated calcified vessels, mild diffuse coronary artery disease, 20% to 30% luminal stenosis. Right coronary artery was nondominant. No critical stenosis or occlusion noted. Surgical aortic valve replacement was noted. Aortic valve was not crossed due to presence of 1st aortic valve. Right groin repaired using Mynx closure device. The patient transferred to the floor in stable condition. Buddy Brooks MD KSB/MODL /[id number]
[2019-03-06] MEDS: ENOXAPARIN SOD INJ 40 MG/0.4 ML SYR SC SCH (17:06)
[2019-03-06] MEDS ORDERED: Atorvastatin PO (18:09)
[2019-03-06] MEDS ORDERED: FAMOTIDINE20 MG PO (18:09)
[2019-03-06] MEDS ORDERED: LOPRESSOR25 MG PO (18:09)
[2019-03-06] MEDS ORDERED: ASPIR 8181 MG PO (18:10)
--- NOTE | 2019-03-06 18:13 | NUR ---
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 hba1c/lipids Lovenox/pepcid Hba1c 5.8; Abnormal stress test, so plans for C; f/u echo. LDL 54. cleared by cardiology; CAD but no intervention; d/c home d/c home f/u pcp 1 week and 2 weeks stable d/c>35mins Jonathan Vargas MD, PhD.
[2019-03-06] MEDS ORDERED: MELOXICAM 7.5 MG TAB PO ONE (18:16)
[2019-03-06] MEDS ORDERED: MELOXICAM7.5 MG PO (18:16)
--- NOTE | 2019-03-06 18:38 | NUR ---
discharge instructions given pt verbalized understanding iv dc pressure dressing applied and taped right groin dressing is dry and intact pt is now waiting for ride home
--- NOTE | 2019-03-06 19:00 | NUR ---
pt discharged to home via wheel chair
[2019-03-07] MEDS ORDERED: MELOXICAM 7.5 MG TAB PO SCH (09:00)
== END 2019-03-06 18:50 | disposition home or self-care (01) ==
LOC: ER 21:20 → ERHOLD 03-05 01:18 → MED/SURG 03-05 02:13
PROVIDERS: ADMIT Internal Medicine; ATTEND Internal Medicine
DX: R07.89 Other chest pain (principal); M79.18 Myalgia, other site; E78.5 Hyperlipidemia, unspecified; E11.22 Type 2 diabetes mellitus with diabetic chronic kidney disease; I12.9 Hypertensive chronic kidney disease with stage 1 through stage 4 chronic kidney disease, or unspecified chronic kidney disease; N18.3 Chronic kidney disease, stage 3 (moderate); E03.9 Hypothyroidism, unspecified; E66.9 Obesity, unspecified; Z68.32 Body mass index [BMI] 32.0-32.9, adult; Z95.2 Presence of prosthetic heart valve; G40.909 Epilepsy, unspecified, not intractable, without status epilepticus; E87.1 Hypo-osmolality and hyponatremia; R07.2 Precordial pain; R94.39 Abnormal result of other cardiovascular function study; I25.10 Atherosclerotic heart disease of native coronary artery without angina pectoris
CPT/HCPCS: 36415 ×2; 71045; 80053; 80061; 82550 ×2; 82553 ×2; 83036; 83880; 84484 ×2; 85025; 85379; 93005 ×2; 93306; 93454; 97161; 97530; 99284; C1760; C1769; G0378 ×2; J0360 ×2; J1650 ×3; J2001; J2250; J2270 ×2; J2405; J3010; J7030 ×2; Q9967; J0583

== ENCOUNTER 2019-08-03 06:42 | Observation (INO) | payer MEDICARE ==
[~2019-08-03] VITALS: Ht 165.1 cm; Wt 88.9 kg
[~2019-08-03 06:42] MED LIST changes: +ASPIR 8181 MG PO; +Atorvastatin PO; +FAMOTIDINE20 MG PO; +LEVOTHYROXINE200 MCG PO; +LISINOPRIL-HCT1 EACH PO; +LOPRESSOR25 MG PO; +MELOXICAM7.5 MG PO; +PRAVASTATIN SOD80 MG PO
[2019-08-03] MEDS ORDERED: ASPIRIN 81 MG CHEW TAB PO ONE ×2 (07:00→08:15)
[2019-08-03 07:20] LABS: BASOPHILS % 0.1 % (0.0-1.0); EOSINOPHILS # (AUTO) 0.2 (0.0-0.4); EOSINOPHILS % 2.3 % (0.0-6.0); HEMATOCRIT 30.2 % (34.2-44.1); HEMOGLOBIN 9.9 g/dL (12.0-16.0); LYMPHOCYTES # (AUTO) 1.7 (1.0-3.2); LYMPHOCYTES % 21.3 % (18.0-39.1); MEAN CORPUSCULAR HEMOGLOBIN 29.9 pg (28-32); MEAN CORPUSCULAR HGB CONC 32.8 g/dL (31-35); MEAN CORPUSCULAR VOLUME 91.2 fL (81-99); MONOCYTES # (AUTO) 0.6 (0.2-0.8); MONOCYTES % 7.9 % (4.4-11.3); NEUTROPHILS # (AUTO) 5.4 (2.1-6.9); PLATELET COUNT 118 x10e3/uL (140-360); RED BLOOD COUNT 3.31 x10e6/uL (3.6-5.1); RED CELL DISTRIBUTION WIDTH 12.7 % (11.7-14.4)
[2019-08-03 07:34] LABS: ALBUMIN 3.6 g/dL (3.5-5.0); ANION GAP 14.5 mmol/L (8-16); CALCIUM 8.8 mg/dL (8.4-10.2); CREATININE, SERUM 1.33 mg/dL (0.57-1.11); POTASSIUM 4.5 mmol/L (3.5-5.1)
[2019-08-03 07:43] LABS: CREATINE KINASE MB 3.7 ng/mL (0-5.0)
[2019-08-03] MEDS ORDERED: MORPHINE SULFATE INJ 4 MG/ML INJ 1ML IV PRN (08:15)
[2019-08-03] MEDS ORDERED: ONDANSETRON HCL INJ 2MG/ML 2ML 2 MG/ML VIAL IV PRN ×2 (08:15→16:15)
[2019-08-03] MEDS ORDERED: SODIUM CHLORIDE FLUSH 10 ML SYR INJ PRN (08:15)
--- NOTE | 2019-08-03 08:22 | Diagnostic Imaging Report ---
EXAM: CHEST 2 VIEWS DATE: 08/03/2019 6:53 AM INDICATION: Chest pain COMPARISON: 03/04/2019 FINDINGS: Postsurgical changes from median sternotomy and valve replacement again noted. The trachea is midline. The lungs are symmetrically expanded without evidence for large focal consolidation, pneumothorax, or significant pleural effusion. The cardiomediastinal silhouette is stable in appearance. No acute osseous abnormality is identified. The surrounding soft tissues are unremarkable. IMPRESSION: No acute cardiopulmonary process identified. Signed by: Dr. Kumar Smith MD on 08/03/2019 8:20 AM
[2019-08-03] MEDS ORDERED: AMLODIPINE BESYL5 MG PO (08:25)
[2019-08-03] MEDS ORDERED: ACETAMINOPHEN 325 MG TAB PO PRN (13:15)
[2019-08-03 13:29] LABS: CREATINE KINASE MB < 1.00 ng/mL (0-4.3)
[2019-08-03 13:30] LABS: CREATINE KINASE 43 IU/L (29-168)
[2019-08-03] MEDS ORDERED: SENNOSIDES 8.6 MG TAB PO PRN (16:15)
--- NOTE | 2019-08-03 16:15 | NUR ---
H&P cc: cp HPI: 73yoF, PCP , developed precordial chest pain with sob. No dizziness. 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
[2019-08-03] MEDS ORDERED: ISOSORBIDE MONONITRATE 30 MG TAB CR PO SCH (17:00)
[2019-08-03] MEDS ORDERED: PANTOPRAZOLE SOD 40 MG TABEC PO SCH (17:00)
[2019-08-03 17:15] LABS: CHOL/HDL RATIO 1.9 (3.0-3.6)
[2019-08-03] MEDS ORDERED: CARBAMAZEPINE 200 MG TAB PO SCH (18:00)
--- NOTE | 2019-08-03 19:37 | NUR ---
BEDSIDE SHIFT REPORT COMPLETED WITH ONCOMING NURSE. PATIENT IN STABLE CONDITION WITH NO S/S OF RESPIRATORY DISTRESS. CALL LIGHT IS WITHIN REACH, PATIENT INSTRUCTED TO CALL FOR ASSISTANCE NEEDED. BED ALARM APPLIED.
[2019-08-03 19:51] LABS: CREATINE KINASE 43 IU/L (29-168)
[2019-08-03 19:56] LABS: CREATINE KINASE MB < 1.00 ng/mL (0-4.3)
[2019-08-03 20:00] VITALS: BP 175/77
--- NOTE | 2019-08-03 20:00 | NUR ---
Patient received lying in bed. AAO x 3. Patient had no complaint of pain. Respirations even and non-labored. Admission history obtained from daughter and medical chart. Initial physical assessment performed. Telemetry box in place. Patient oriented to room, call light and plan of care. Fall precautions implemented. Patient instructed to call for assistance when needed. Call light within reach.
--- NOTE | 2019-08-03 20:37 | Consultation ---
DATE OF CONSULTATION: 08/03/2019 Cardiology Consultation REQUESTING PHYSICIAN: Jonathan Vargas MD. REASON FOR CONSULTATION: Chest pain. HISTORY OF PRESENT ILLNESS: This is a 73-year-old woman with history of aortic valve replacement x2, most recently with bioprosthetic valve, hypertension, hyperlipidemia, and chronic kidney disease, who presents with complaints of chest pain. The patient reports she began having chest pain and shortness of breath yesterday afternoon. She describes the pain as a squeezing, 8/10 in severity with radiation to the bilateral shoulders. She attempted 3 sublingual nitroglycerin without any significant relief. The pain lasted several hours. Due to her continued symptoms, she presented to the ER for further evaluation. REVIEW OF SYSTEMS: Negative except as per HPI. PAST MEDICAL HISTORY: 1. Aortic valve replacement x2, most recently with bioprosthetic valve. 2. Hypertension. 3. Hyperlipidemia. 4. Chronic kidney disease. PAST SURGICAL HISTORY: Aortic valve replacement x2. SOCIAL HISTORY: No tobacco, alcohol, or illicit drugs. FAMILY HISTORY: Noncontributory to current illness. ALLERGIES: NO KNOWN DRUG ALLERGIES. MEDICATIONS: Please see medication reconciliation. PHYSICAL EXAMINATION: VITAL SIGNS: Temperature 98.5 degrees, pulse 74, respiratory rate 18, blood pressure 168/79, oxygen saturation 100% on 2 L nasal cannula. GENERAL: Well-developed, well-nourished woman, awake and alert, in no acute distress. HEENT: Normocephalic, atraumatic. Pupils equal. No scleral icterus. NECK: Supple. No thyromegaly or cervical lymphadenopathy. No carotid bruits. LUNGS: Clear to auscultation bilaterally. No wheezes or crackles. CARDIOVASCULAR: Normal rate. Regular rhythm. Systolic murmur with radiation to the carotids. Normal S1, S2. ABDOMEN: Soft and nontender. EXTREMITIES: No edema. NEUROLOGIC: Nonfocal exam. SKIN: Dry and intact. LABORATORY DATA: WBC 7.95, hemoglobin 9.9, hematocrit 30.2, platelets 118. Sodium 139, potassium 4.5, chloride 105, CO2 of 24, BUN 20, creatinine 1.33. Troponin is less than 0.05. EKG, normal sinus rhythm with sinus arrhythmia, right bundle-branch block, left anterior fascicular block. T-wave abnormality, consider inferolateral ischemia. Chest x-ray, no acute cardiopulmonary process identified. IMPRESSION: 1. Chest pain. 2. Elevated BNP. 3. Aortic valve replacement x2, most recently with bioprosthetic valve. 4. Hypertension. 5. Hyperlipidemia. 6. Chronic kidney disease. RECOMMENDATIONS: The patient ruled out for myocardial infarction with serial cardiac biomarkers. She underwent cardiac catheterization in February of 2019 without significant coronary artery disease. Continue home cardiac medication. Gentle diuresis given elevated BNP. Monitor the patient closely on telemetry. No further cardiac evaluation is indicated at this time. Thank you for this consult. We will continue to follow. Connie Elliott MD ABS/MODL /[id number]
[2019-08-03] MEDS: CARBAMAZEPINE 200 MG TAB PO SCH (20:47)
[2019-08-03] MEDS: ISOSORBIDE MONONITRATE 30 MG TAB CR PO SCH (20:47)
[2019-08-03] MEDS: PANTOPRAZOLE SOD 40 MG TABEC PO SCH (20:57)
[2019-08-03] MEDS ORDERED: ATORVASTATIN 40 MG TAB PO SCH (21:00)
[2019-08-03] MEDS ORDERED: NON-FORMULARY MEDICATION ([Atorvastatin] 40 MG) PO SCH (21:00)
[2019-08-03] MEDS ORDERED: ZOLPIDEM TARTRATE 5 MG TAB PO PRN (21:00)
[2019-08-03] MEDS: HEPARIN SOD (PORCINE) 5,000 UNIT/ML VIAL SC SCH (22:00)
[2019-08-04] VITALS: BP 150/66
[2019-08-04 04:00] VITALS: BP 145/67
[2019-08-04] MEDS: HEPARIN SOD (PORCINE) 5,000 UNIT/ML VIAL SC SCH (06:00)
[2019-08-04] MEDS ORDERED: LEVOTHYROXINE SODIUM 100 MCG TAB PO SCH (06:00)
[2019-08-04 06:07] LABS: BASOPHILS % 0.3 % (0.0-1.0); EOSINOPHILS # (AUTO) 0.1 (0.0-0.4); EOSINOPHILS % 1.6 % (0.0-6.0); HEMATOCRIT 28.1 % (34.2-44.1); HEMOGLOBIN 9.2 g/dL (12.0-16.0); LYMPHOCYTES # (AUTO) 1.9 (1.0-3.2); LYMPHOCYTES % 27.6 % (18.0-39.1); MEAN CORPUSCULAR HEMOGLOBIN 29.5 pg (28-32); MEAN CORPUSCULAR HGB CONC 32.7 g/dL (31-35); MEAN CORPUSCULAR VOLUME 90.1 fL (81-99); MONOCYTES # (AUTO) 0.6 (0.2-0.8); NEUTROPHILS # (AUTO) 4.3 (2.1-6.9); NEUTROPHILS % 62.4 % (38.7-80.0); PLATELET COUNT 111 x10e3/uL (140-360); RED BLOOD COUNT 3.12 x10e6/uL (3.6-5.1); RED CELL DISTRIBUTION WIDTH 12.6 % (11.7-14.4)
[2019-08-04 06:30] LABS: ALBUMIN 3.3 g/dL (3.5-5.0); ALBUMIN/GLOBULIN RATIO 0.9 (0.8-2.0); ANION GAP 14.3 mmol/L (8-16); CALCIUM 8.8 mg/dL (8.4-10.2); CREATININE, SERUM 1.38 mg/dL (0.57-1.11); POTASSIUM 4.3 mmol/L (3.5-5.1)
[2019-08-04] MEDS ORDERED: PROTONIX40 MG/ML PO (06:32)
[2019-08-04] MEDS ORDERED: MELOXICAM7.5 MG PO (06:33)
--- NOTE | 2019-08-04 06:34 | NUR ---
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
--- NOTE | 2019-08-04 07:00 | NUR ---
Walking rounds done. Patient resting comfortably. Shift report given to oncoming nurse.
[2019-08-04] MEDS ORDERED: ONDANSETRON HCL 4 MG ORAL DISINTEGRATING TAB PO PRN (07:30)
[2019-08-04 07:44] VITALS: BP 147/67
[2019-08-04 08:20] VITALS: BP 147/67
[2019-08-04] MEDS: PANTOPRAZOLE SOD 40 MG TABEC PO SCH (08:22)
[2019-08-04] MEDS: CARBAMAZEPINE 200 MG TAB PO SCH (08:22)
[2019-08-04] MEDS: ISOSORBIDE MONONITRATE 30 MG TAB CR PO SCH (08:22)
[2019-08-04] MEDS ORDERED: AMLODIPINE BESYLATE 5 MG TAB PO SCH (09:00)
[2019-08-04] MEDS ORDERED: NON-FORMULARY MEDICATION (Levothyroxine Sodium 200 MCG) PO SCH (09:00)
[2019-08-04] MEDS ORDERED: ASPIRIN 325 MG TAB PO SCH (09:00)
--- NOTE | 2019-08-04 10:56 | NUR ---
Pt discharged home at this time. Pt verbalized understanding of all discharge instructions and follow appts. 0 s/s of acute distress noted. Denies any pain at this time.
== END 2019-08-04 10:58 | disposition home or self-care (01) ==
LOC: ER 06:42 → ERHOLD 08:09 → MED/SURG3 18:40
PROVIDERS: ADMIT Internal Medicine; ATTEND Internal Medicine
DX: R07.2 Precordial pain (principal); N28.9 Disorder of kidney and ureter, unspecified; I50.9 Heart failure, unspecified; Z95.2 Presence of prosthetic heart valve; E78.5 Hyperlipidemia, unspecified; I13.0 Hypertensive heart and chronic kidney disease with heart failure and stage 1 through stage 4 chronic kidney disease, or unspecified chronic kidney disease; N18.3 Chronic kidney disease, stage 3 (moderate); I25.10 Atherosclerotic heart disease of native coronary artery without angina pectoris; E03.9 Hypothyroidism, unspecified; E66.9 Obesity, unspecified; Z68.32 Body mass index [BMI] 32.0-32.9, adult; E11.22 Type 2 diabetes mellitus with diabetic chronic kidney disease
CPT/HCPCS: 36415 ×2; 71046; 80053 ×2; 80061; 82550 ×2; 82553 ×2; 83036; 83880; 84484 ×2; 85025 ×2; 93005; 99284; G0378 ×2; J1644 ×2; J2270; S0164 ×2

== ENCOUNTER → 2021-02-20 | Day surgery (SDC) | payer MEDICARE ==
[2021-02-18 15:00] LABS: BASOPHILS % 0.4 % (0.0-1.0); EOSINOPHILS # (AUTO) 0.2 (0.0-0.4); EOSINOPHILS % 3.7 % (0.0-6.0); HEMATOCRIT 29.5 % (34.2-44.1); HEMOGLOBIN 9.6 g/dL (12.0-16.0); LYMPHOCYTES # (AUTO) 1.4 (1.0-3.2); LYMPHOCYTES % 24.1 % (18.0-39.1); MEAN CORPUSCULAR HEMOGLOBIN 29.8 pg (28-32); MEAN CORPUSCULAR HGB CONC 32.5 g/dL (31-35); MEAN CORPUSCULAR VOLUME 91.6 fL (81-99); MONOCYTES # (AUTO) 0.5 (0.2-0.8); NEUTROPHILS # (AUTO) 3.6 (2.1-6.9); NEUTROPHILS % 63.4 % (38.7-80.0); PLATELET COUNT 170 x10e3/uL (140-360); RED BLOOD COUNT 3.22 x10e6/uL (3.6-5.1); RED CELL DISTRIBUTION WIDTH 12.9 % (11.7-14.4)
[2021-02-18 15:10] LABS: INR 1.06
[2021-02-18 15:19] LABS: ALBUMIN 3.8 g/dL (3.5-5.0); ANION GAP 15.9 mmol/L (8-16); CALCIUM 9.2 mg/dL (8.4-10.2); CREATININE, SERUM 1.35 mg/dL (0.57-1.11); POTASSIUM 4.9 mmol/L (3.5-5.1)
[~2021-02-20] VITALS: Ht 167.6 cm; Wt 79.4 kg
[~2021-02-20] MED LIST changes: +AMLODIPINE BESYL5 MG PO; +ATORVASTATIN CA20 MG PO; +BENZOCAINE 20% SPR 60 ML CAN ONE; +CLARITIN10 MG PO; +MONTELUKAST SOD10 MG PO; +PROTONIX40 MG/ML PO; +SODIUM CHLORIDE 0.9% 1000ML 1,000 ML ONE; +TYLENOL EXTRA500 MG PO; +XARELTO20 MG PO
[2021-02-20 10:15] VITALS: BP 123/92
[2021-02-20 13:30] VITALS: BP 140/98
[2021-02-20 13:45] VITALS: BP 132/94
[2021-02-20 14:00] VITALS: BP 140/90
== END | disposition home or self-care (01) ==
LOC: OR 09:46
PROVIDERS: ATTEND Internal Medicine Cardiovascular Disease
DX: I48.91 Unspecified atrial fibrillation (principal); E78.5 Hyperlipidemia, unspecified; I12.9 Hypertensive chronic kidney disease with stage 1 through stage 4 chronic kidney disease, or unspecified chronic kidney disease; N18.9 Chronic kidney disease, unspecified; Z01.812 Encounter for preprocedural laboratory examination; Z20.822 Contact with and (suspected) exposure to COVID-19
CPT/HCPCS: 36415; 80053; 85025; 85610; 93005; 93320; 93325; J7030; U0002; 93307; 93312

== ENCOUNTER 2022-01-12 18:59 | Emergency (ER) | payer MEDICARE, OTHER ==
[~2022-01-12] VITALS: Ht 167.6 cm; Wt 79.4 kg
[~2022-01-12 18:59] MED LIST changes: -BENZOCAINE 20% SPR 60 ML CAN ONE; -SODIUM CHLORIDE 0.9% 1000ML 1,000 ML ONE
[2022-01-12 19:30] LABS: BASOPHILS % 0.4 % (0.0-1.0); EOSINOPHILS # (AUTO) 0.2 (0.0-0.4); EOSINOPHILS % 3.4 % (0.0-6.0); HEMATOCRIT 32.8 % (34.2-44.1); HEMOGLOBIN 9.8 g/dL (12.0-16.0); LYMPHOCYTES # (AUTO) 1.2 (1.0-3.2); MEAN CORPUSCULAR HEMOGLOBIN 26.5 pg (28-32); MEAN CORPUSCULAR HGB CONC 29.9 g/dL (31-35); MEAN CORPUSCULAR VOLUME 88.6 fL (81-99); MONOCYTES # (AUTO) 0.5 (0.2-0.8); MONOCYTES % 8.2 % (4.4-11.3); NEUTROPHILS # (AUTO) 3.7 (2.1-6.9); NEUTROPHILS % 66.8 % (38.7-80.0); PLATELET COUNT 118 x10e3/uL (140-360); RED CELL DISTRIBUTION WIDTH 16.9 % (11.7-14.4)
[2022-01-12 19:50] LABS: ALBUMIN/GLOBULIN RATIO 0.7 (0.8-2.0); ANION GAP 17.7 mmol/L (8-16); CALCIUM 7.8 mg/dL (8.4-10.2); CREATININE, SERUM 2.51 mg/dL (0.57-1.11); POTASSIUM 4.7 mmol/L (3.5-5.1)
[2022-01-12 19:56] LABS: CREATINE KINASE MB 3.1 ng/mL (0-5.0)
[2022-01-12] MEDS ORDERED: FUROSEMIDE INJ 10 MG/ML 4 ML VIAL IV STA (22:24)
[2022-01-12 22:36] LABS: ABG HCO3 30 mmol/L (22-26); ABG PCO2 44 mmHg (35-45); ABG PH 7.44 (7.35-7.45); ABG PO2 117 mmHg (80-105); ABG TCO2 31
[2022-01-12 22:46] LABS: CLARITY,URINE CLEAR (CLEAR); COLOR,URINE YELLOW (YELLOW); LEUKOCYTE ESTERASE ,URINE TRACE (NEGATIVE); NITRITE,URINE NEGATIVE (NEGATIVE); PROTEIN,URINE DIPSTICK NEGATIVE (NEGATIVE)
[2022-01-12 22:47] LABS: KETONES,URINE NEGATIVE (NEGATIVE); URINE UROBILINOGEN 0.2 mg/dL (0.2 - 1)
[2022-01-12 22:52] LABS: BACTERIA,URINE FEW /HPF; EPITHELIAL CELLS,URINE MANY /LPF; MUCUS,URINE MANY (RARE); RENAL EPITHELIAL CELLS,URINE FEW; TRANSITIONAL EPI CELLS,URINE MODERATE; WBC,URINE (MAN) 21-50 /HPF (0-5)
== END 2022-01-12 23:30 | disposition other institution (70) ==
LOC: ER 19:25
DX: S00.83XA Contusion of other part of head, initial encounter (principal); W07.XXXA Fall from chair, initial encounter; Y92.89 Other specified places as the place of occurrence of the external cause; J81.1 Chronic pulmonary edema; N28.9 Disorder of kidney and ureter, unspecified; I10 Essential (primary) hypertension; E03.9 Hypothyroidism, unspecified; E78.5 Hyperlipidemia, unspecified; K21.9 Gastro-esophageal reflux disease without esophagitis; Z95.1 Presence of aortocoronary bypass graft; Z95.2 Presence of prosthetic heart valve; Z20.822 Contact with and (suspected) exposure to COVID-19; R94.31 Abnormal electrocardiogram [ECG] [EKG]
CPT/HCPCS: 36415; 36600; 70450; 71045; 72125; 80053; 81001; 82550; 82553; 82805; 83605; 83880; 84484; 85025; 87040; 94799; 99284; J1940; U0002